=== PATIENT | female | born 1990 | race Caucasian/White ===

== ENCOUNTER 2017-02-24 15:33 | Emergency (ER) | payer OTHER, MEDICAID ==
[~2017-02-24] VITALS: Ht 157.5 cm; Wt 63.0 kg
[~2017-02-24 15:33] MED LIST: MIREIUD IU
[2017-02-24 15:39] VITALS: BP 110/53; PULSE 75; RESP 16; TEMP 98; O2SAT 99
[2017-02-24] MEDS ORDERED: MIREIUD I-UTERINE (16:01)
[2017-02-24] MEDS ORDERED: IBUPROFEN 600 MG TAB PO ONE (16:30)
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
[2017-02-24] MEDS ORDERED: NAPR500T2 PO (17:09)
[2017-02-24] MEDS ORDERED: CYCL5TAB PO (17:09)
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
== END 2017-02-24 17:25 | disposition home or self-care (01) ==
LOC: PHEFT 15:33
DX: M54.2 Cervicalgia (principal); M25.511 Pain in right shoulder; V89.2XXA Person injured in unspecified motor-vehicle accident, traffic, initial encounter
CPT/HCPCS: 73030; 99283

== ENCOUNTER 2017-08-19 11:31 | Emergency (ER) | payer OTHER ==
[~2017-08-19 11:31] MED LIST changes: +FLUT50SP EACH NARE; +MIREIUD I-UTERINE; -MIREIUD IU
[2017-08-19 11:53] VITALS: BP 121/72; PULSE 91; RESP 22; TEMP 98.6
[2017-08-19] MEDS ORDERED: IBUPROFEN 800 MG TAB PO ONE (13:00)
[2017-08-19] MEDS ORDERED: hydrOXYzine PAMOATE 25 MG CAP PO ONE (13:00)
--- NOTE | 2017-08-19 13:15 | PD ---
HPI Chief Complaint: Injury Time Seen by Provider: 12:47 Travel History International Travel<30 days: No Contact w/Intl Traveler<30days: No Traveled to known affect area: No History of Present Illness HPI 27-year-old female presents to emergency room with complaint of left ankle pain and swelling since last night after twisting her ankle while wearing heels. Denies paresthesias, loss of sensation to the affected extremity. Has been using crutches for support. Has not taken any medications or tried treatments to alleviate her symptoms. Rates pain 10/10. Describes it as throbbing and pressure sensation. Primary care provider is Dr. Canseco. History of anxiety and does not take medication. Denies other significant past medical history. Allergies to shellfish. Has no other medical complaints. No other modifying factors or associated signs and symptoms. PFSH Past Medical History Diminished Hearing: No ?: Not Social History Alcohol Use: No Tobacco Use: No Substance Use: No Allergies-Medications (Allergen,Severity, Reaction): Coded Allergies: shellfish derived (Verified Allergy, Severe, Itching, 08/19/17) Reported Meds & Prescriptions Reported Meds & Active Scripts Active Fluticasone Nasal [place] 50 Mcg/Act Naspr 50 Mcg EACH NARE BID 50 mcg/spray Reported Mirena (Levonorgestrel (Iud)) 20 Mcg/24 Hour (5 Years) Iud 1 Ea I-UTERINE ONCE Review of Systems Except as stated in HPI: all other systems reviewed are Neg Physical Exam Narrative GENERAL: Well-nourished, well-developed female patient, in no acute distress; hysterical and tearful SKIN: Warm and dry. HEAD: Atraumatic. Normocephalic. EYES: Pupils equal and round. No scleral icterus. No injection or drainage. ENT: Mucosa pink and moist. Airway patent. NECK: Trachea midline. CARDIOVASCULAR: Regular rate. RESPIRATORY: No accessory muscle use. GASTROINTESTINAL: Flat. MUSCULOSKELETAL: Left ankle with point tenderness to the lateral malleolus zone with palpation; with ecchymosis and edema; without erythema. Left lateral foot with edema, tenderness, and ecchymosis. No obvious deformities. Left lower extremity is supple and nontense with 2+ pedal pulse and sensory intact. No obvious deformities. No clubbing. No cyanosis. No edema. NEUROLOGICAL: Awake and alert. Oriented 3. No obvious cranial nerve deficits. Motor grossly within normal limits. Normal speech. PSYCHIATRIC: Appropriate mood and affect; insight and judgment normal. Data Data Last Documented VS Vital Signs Date Time Temp Pulse Resp B/P (MAP) Pulse Ox O2 Delivery O2 Flow Rate FiO2 08/19/17 13:21 99 08/19/17 11:53 98.6 91 22 121/72 (88) Orders Orders Hydroxyzine Pamoate (Vistaril) (08/19/17 13:00) Ibuprofen (Motrin) (08/19/17 13:00) Ankle, Complete ([id number]) (08/19/17 12:53) Foot, Complete ([id number]) (08/19/17 12:53) Ice/Cold Pack (08/19/17 12:53) Acetamin-Hydrocod 325-5 Mg ([place] 5-325 (08/19/17 13:45) Crutches (08/19/17 13:34) Splint Or Brace Apply/Monitor (08/19/17 13:41) MDM Medical Decision Making Medical Screen Exam Complete: Yes Emergency Medical Condition: Yes Medical Record Reviewed: Yes Differential Diagnosis Fracture, dislocation, sprain Narrative Course 27-year-old female with left ankle and foot injury. Patient is hysterically crying. He has history of anxiety and does not take medication. Left foot, left ankle, ibuprofen, Vistaril ordered. 1403: Left ankle and left foot x-rays conclude: Foot X-Ray 08/19/17 1253 Signed Impressions: Service Date/Time: July 13:22 - CONCLUSION: Unremarkable examination of the left foot. There is a known fibular fracture. Darci Connolly MD Ankle X-Ray 08/19/17 1253 Signed Impressions: Service Date/Time: July 13:21 - CONCLUSION: Spiral fracture of the distal fibular metaphysis exiting at or inferior to the tibiotalar joint. Darci Connolly MD Discussed x-ray findings with the patient. Bermudez splint placed for support. Crutches provided for support. Instructed patient to follow-up with orthopedics. Lortab, ibuprofen prescribed for home. Instructed patient to follow up with primary care provider. Patient verbalizes understanding and agreement with treatment plan. Patient is medically cleared and stable for discharge. Discussed reasons to return to the emergency department. Patient agrees with treatment plan. The patients vital signs are stable and the patient is stable for outpatient follow-up and treatment. Patient discharged home, stable and in no acute distress. Diagnosis Primary Impression: Closed left fibular fracture Qualified Codes: S82.832A - Other fracture of upper and lower end of left fibula, initial encounter for closed fracture Referrals: [facility] Orthopaedic Surgeon Primary Care Physician Patient Instructions: Ankle Fracture (ED), Crutch Instructions (ED), General Instructions Departure Forms: Tests/Procedures, Work Release Special Instructions: Unable to work until cleared by orthopedics or primary care provider Additional Instructions: Taloga as prescribed; do not drink alcohol or operate machinery while on [place] Ibuprofen as directed and as needed for pain and inflammation Rest, ice, compress, and elevate extremity to decrease pain and inflammation Splint for support; do not remove splint until cleared by orthopedics Do not bear weight on the affected leg until you are cleared to bear weight by an orthopedic doctor Crutches for support Avoid aggravating activity; increase activity as tolerated Follow-up with primary care provider Follow-up with orthopedics within 1 week Return to the emergency department immediately with worsening of symptoms Med/Other Pt SpecificInfo: Prescription(s) given Scripts Ibuprofen (Ibuprofen) 800 Mg Tab 800 MG PO Q6HR Y for PAIN, #30 TAB 0 Refills Prov: Mary Reese 08/19/17 Hydrocodone-Acetaminophen ([place]) 5 Mg-325 Mg Tab 1 TAB PO Q4H Y for PAIN, #18 TAB 0 Refills Prov: Mary Reese 08/19/17 Disposition: 01 DISCHARGE HOME Condition: Stable Mary Reese Aug 19, 2017 13:15
[2017-08-19 13:21] VITALS: O2SAT 99
[2017-08-19] MEDS ORDERED: ACETAMINOPHEN/HYDROcodone 325 MG/5 MG TAB PO ONE (13:45)
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
[2017-08-19] MEDS ORDERED: NORC5TAB PO (14:08)
[2017-08-19] MEDS ORDERED: IBUP1TAB7 PO (14:08)
== END 2017-08-19 14:23 | disposition home or self-care (01) ==
LOC: NEPK 11:31
DX: S82.832A Other fracture of upper and lower end of left fibula, initial encounter for closed fracture (principal); F41.9 Anxiety disorder, unspecified; X50.1XXA Overexertion from prolonged static or awkward postures, initial encounter
CPT/HCPCS: 29515; 73610; 73630; 99283; E0113; Q0177